=== PATIENT | female | born 1965 | race Caucasian/White ===

== ENCOUNTER 2018-06-05 14:36 | Emergency (ER) | payer SELFPAY ==
[~2018-06-05] VITALS: Ht 170.2 cm; Wt 59.0 kg
[2018-06-05 15:00] VITALS: BP 130/90
[2018-06-05] MEDS ORDERED: TETRACAINE 0.5% OPHTH SOLUTION 4ML BOTTLE. OU ONE (15:15)
[2018-06-05] MEDS ORDERED: FLUORESCEIN OPHTH TEST STRIP. OU ONE (15:15)
[2018-06-05] MEDS ORDERED: ONDA4TAB12 PO (15:47)
[2018-06-05] MEDS ORDERED: PRED50TA PO (15:47)
[2018-06-05] MEDS ORDERED: CEPH-264 PO (15:47)
--- NOTE | 2018-06-05 15:47 | PHYS DOC ---
Past Medical History Past Medical History: No Pertinent History (CINDY CASH AUDIO/VISUAL MANAGER) Past Surgical History: Tubal ligation (CINDY CASH APRN) Additional Information: pack/day Alcohol Use: Occasionally Drug Use: None (CINDY CASH APRN) Adult General Chief Complaint Chief Complaint: EYE PROBLEMS HPI HPI Patient is a 53 year old female who presents with 1 month of bilateral eye itching and then it went away and now it has come back. Patient now has bilateral thigh clear discharge, swelling, redness around both eyes with some vesicles. Patient states on this past Thursday she went to [facility] and they stated that she might have shingles around her eyes bilaterally. Ronald start her on acyclovir states it has not helped at all. Patient states it is burning and itching it feels like an open wound around her eyes. When looking in her eyes is very tender. Conjunctivae is pink. There is clear discharge from bilateral eyes. Patient denies using any different soaps or detergents or anything different on her face. 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 Patient states she's not been around anybody else that has had shingles or eye infections. She has had no previous illness. She denies any medical history. Afebrile and vital signs within normal limits. Visual acuities are left eye 20/ 20, right eye 20/20, both eyes 20/20. She denies headache, dizziness states at times she is light sensitive but denies having any acute visual changes. I have had Dr. Carrasco examine this patient also. Eye Exam w/ slit lamp: Visual Acuity: Left 20/20, Right 20/20, Both 20/20 Visual Olmedo: Intact in all four quadrants bilaterally Lac ducts/glands: Clear discharge, No swelling Lids w/ evertion: Normal, no foreign body Conj/Leroy: Lybrook conjunctiva, negative Fluorescein/Brandy's Retina exam: No obvious abnormality Patient to follow-up with Dr. Hicks toolroom machinist if she's not better by Thursday or she can return to the ED and we can recheck her. Patient will be put on Keflex and prednisone and she is to continue acyclovir. (CINDY CASH AUDIO/VISUAL MANAGER) Review of Systems Review of Systems Constitutional: Denies fever or chills [] Eyes: change in visual acuity, redness, or eye pain [] HENT: Denies nasal congestion or sore throat [] Respiratory: Denies cough or shortness of breath [] Cardiovascular: No additional information not addressed in HPI [] GI: Denies abdominal pain, nausea, vomiting, bloody stools or diarrhea [] : Denies dysuria or hematuria [] Musculoskeletal: Denies back pain or joint pain [] Integument: Denies rash or skin lesions [] Neurologic: Denies headache, focal weakness or sensory changes [] Endocrine: Denies polyuria or polydipsia [] All other systems were reviewed and found to be within normal limits, except as documented in this note. (CINDY CASH APRN) Current Medications Current Medications Current Medications Medications (Trade) Dose Ordered Sig/Kade Start Time Stop Time Status Last Admin Dose Admin Fluorescein Sodium (Ful-Marybel) 4 strip 1X ONCE 06/05/18 15:15 06/05/18 15:18 DC Tetracaine HCl (Tetracaine) 1 drop 1X ONCE 06/05/18 15:15 06/05/18 15:18 DC (ALEXIS CARRASCO MD) Allergies Allergies Allergies Coded Allergies Type Severity Reaction Last Updated Verified Penicillins Allergy Intermediate 06/05/18 No (ALEXIS CARRASCO MD) Physical Exam Physical Exam Constitutional: Well developed, well nourished, no acute distress, non-toxic appearance. [] HENT: Normocephalic, atraumatic, bilateral external ears normal, oropharynx moist, no oral exudates, nose normal. Bilateral eye clear discharge. [] Eyes: PERRLA, EOMI, conjunctiva normal, no discharge. [] Neck: Normal range of motion, no tenderness, supple, no stridor. [] Cardiovascular:Heart rate regular rhythm, no murmur [] Lungs & Thorax: Bilateral breath sounds clear to auscultation [] Abdomen: Bowel sounds normal, soft, no tenderness, no masses, no pulsatile masses. [] Skin: Warm, dry, erythema and swelling around eyes with vesicles, no rash. [] Back: No tenderness, no CVA tenderness. [] Extremities: No tenderness, no cyanosis, no clubbing, ROM intact, no edema. [] Neurologic: Alert and oriented X 3, normal motor function, normal sensory function, no focal deficits noted. [] Psychologic: Affect normal, judgement normal, mood normal. [] (CINDY CASH APRN) Current Patient Data Vital Signs Vital Signs Date Time Temp Pulse Resp B/P (MAP) Pulse Ox O2 Delivery O2 Flow Rate FiO2 06/05/18 15:00 98.2 95 19 130/90 (103) 97 Room Air 98.2 (ALEXIS CARRASCO MD) EKG EKG [] (CINDY CASH APRN) Radiology/Procedures Radiology/Procedures [] (CINDY CASH APRN) Course & Med Decision Making Course & Med Decision Making Patient is a 53 year old female who presents with 1 month of bilateral eye itching and then it went away and now it has come back. Patient now has bilateral thigh clear discharge, swelling, redness around both eyes with some vesicles. Patient states on this past Thursday she went to [facility] and they stated that she might have shingles around her eyes bilaterally. Ronald start her on acyclovir states it has not helped at all. Patient states it is burning and itching it feels like an open wound around her eyes. When looking in her eyes is very tender. Conjunctivae is pink. There is clear discharge from bilateral eyes. Patient denies using any different soaps or detergents or anything different on her face. 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 Patient states she's not been around anybody else that has had shingles or eye infections. She has had no previous illness. She denies any medical history. Afebrile and vital signs within normal limits. Visual acuities are left eye 20/ 20, right eye 20/20, both eyes 20/20. She denies headache, dizziness states at times she is light sensitive but denies having any acute visual changes. I have had Dr. Carrasco examine this patient also. Eye Exam w/ slit lamp: Visual Acuity: Left 20/20, Right 20/20, Both 20/20 Visual Olmedo: Intact in all four quadrants bilaterally Lac ducts/glands: Clear discharge, No swelling Lids w/ evertion: Normal, no foreign body Conj/Leroy: Lybrook conjunctiva, negative Fluorescein/Brandy's Retina exam: No obvious abnormality Patient to follow-up with Dr. Hicks toolroom machinist if she's not better by Thursday or she can return to the ED and we can recheck her. Patient will be put on Keflex and prednisone and she is to continue acyclovir. (CINDY CASH APRN) Course & Med Decision Making I saw this patient she has bilateral erythema periorbitally with some vesicular changes there is not classic for shingles due to the dermatomal distribution is not entirely accurate however that is possible she was advised to continue acyclovir. Corneal staining per the mid-level was normal. Visual acuity 20/20. Recommended trial of Keflex and prednisone stricter precautiosn come back here. Next week for re-eval if she is not better. (ALEXIS CARRASCO MD) Dragon Disclaimer Dragon Disclaimer This electronic medical record was generated, in whole or in part, using a voice recognition dictation system. (CINDY CASH APRN) Departure Departure Impression: Primary Impression: Blepharitis of both eyes Additional Impression: Eye problem Disposition: HOME, SELF-CARE Condition: STABLE Referrals: NON,STAFF (PCP) Danuta HICKS MD Patient Instructions: Blepharitis, Periorbital Cellulitis Additional Instructions: If not getting better by Thursday follow-up with eye doctor as referred and or anything come back to the ED and we can recheck her eyes. Take medications as prescribed. Scripts Ondansetron (ONDANSETRON ODT) 4 Mg Tab.rapdis 1 TAB PO PRN Q6-8HRS, #20 TAB Prov: CINDY CASH APRN 06/05/18 Cephalexin (KEFLEX) 500 Mg Capsule 500 MG PO QID for 10 Days, #40 CAP Prov: CINDY CASH APRN 06/05/18 Prednisone (PREDNISONE) 50 Mg Tablet 1 TAB PO DAILY for 5 Days, #5 TAB Prov: CINDY CASH APRN 06/05/18 Problem Qualifiers Primary Impression: Blepharitis of both eyes Blepharitis type: unspecified type Eyelid: both upper and lower Qualified Codes: H01.00A - Unspecified blepharitis right eye, upper and lower eyelids; H01.00B - Unspecified blepharitis left eye, upper and lower eyelids CINDY CASH APRN Jun 05, 2018 15:47 ALEXIS CARRASCO MD Jun 05, 2018 17:02
== END 2018-06-05 15:49 | disposition home or self-care (01) ==
LOC: ER 14:36
DX: H01.00A Unspecified blepharitis right eye, upper and lower eyelids (principal); H01.00B Unspecified blepharitis left eye, upper and lower eyelids; F17.200 Nicotine dependence, unspecified, uncomplicated; Z98.51 Tubal ligation status; Z88.0 Allergy status to penicillin
CPT/HCPCS: 99283

== ENCOUNTER 2018-12-13 13:02 | Emergency (ER) | payer SELFPAY ==
[~2018-12-13] VITALS: Ht 170.2 cm; Wt 69.4 kg
[~2018-12-13 13:02] MED LIST: CEPH-264 PO; ONDA4TAB12 PO; PRED50TA PO
[2018-12-13 13:16] VITALS: BP 126/84
--- NOTE | 2018-12-13 13:32 | PHYS DOC ---
Past Medical History Past Medical History: No Pertinent History Past Surgical History: Tubal ligation Alcohol Use: Occasionally Drug Use: None Adult General Chief Complaint Chief Complaint: OTHER COMPLAINTS [facility] HPI Patient is a 53 year old [female] who presents with [bilateral wrist numbness and discomfort for the past 2 years. 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 Reports she rests, her pain improves, but if she continues to use them the discomfort worsens. States she has tried wrapping them with Raffi wrap Kaitlyn, reports she has tried wrist splints to help briefly but continues to have discomfort. Reports she has tried gabapentin at one time, but has not had any quite a while reports that did seem to help her some. ] Review of Systems Review of Systems Constitutional: Denies fever or chills [] Cardiovascular: No additional information not addressed in HPI [] GI: Denies abdominal pain, nausea, vomiting, bloody stools or diarrhea [] : Denies dysuria or hematuria [] Musculoskeletal: Denies back pain or joint pain, complains of bilateral pain to wrists [] Integument: Denies rash or skin lesions [] Neurologic: Denies headache, focal weakness or sensory changes states numbness in hands when she uses them frequently [] Endocrine: Denies polyuria or polydipsia [] All other systems were reviewed and found to be within normal limits, except as documented in this note. Allergies Allergies Allergies Coded Allergies Type Severity Reaction Last Updated Verified Penicillins Allergy Intermediate 06/05/18 No Physical Exam Physical Exam Constitutional: Well developed, well nourished, no acute distress, non-toxic appearance. [] Cardiovascular:Heart rate regular rhythm, no murmur [] Lungs & Thorax: Bilateral breath sounds clear to auscultation [] Abdomen: Bowel sounds normal, soft, no tenderness, no masses, no pulsatile masses. [] Skin: Warm, dry, no erythema, no rash. [] Extremities: No tenderness, no cyanosis, no clubbing, ROM intact, no edema. Phalens test +. Patient reporting tenderness on palpation of volar wrists. [] Neurologic: Alert and oriented X 3, normal motor function, normal sensory function, no focal deficits noted. [] Psychologic: Affect normal, judgement normal, mood normal. [] EKG EKG [] Radiology/Procedures Radiology/Procedures [] Course & Med Decision Making Course & Med Decision Making Pertinent Labs and Imaging studies reviewed. (See chart for details) []Discussed with the patient signs consistent with carpal tunnel injury, due to repetitive work. Discussed no quick fix treatments today, discussed continue splinting, and use of anti-inflammatories, and referral for surgery as needed. We'll provide referral for Ortho for patient to follow up. Dragon Disclaimer Dragon Disclaimer This electronic medical record was generated, in whole or in part, using a voice recognition dictation system. Departure Departure Impression: Primary Impression: Carpal tunnel syndrome, bilateral Disposition: 01 HOME, SELF-CARE Condition: GOOD Referrals: NABILA MCKAY MD (PCP) BHAVIK MICHAUD MD Patient Instructions: Carpal Tunnel Syndrome, [id number] Additional Instructions: As we discussed, continue to use the splints anytime who are going to use your wrists. Continue to take Tylenol or ibuprofen for the anti-inflammatory effects discussed with the discomfort. Contact orthopedic office to try to set up an appointment for a evaluation for your wrists to see if they would recommend surgery or if they have other recommendations. CASSIE BEAL APRN Dec 13, 2018 13:32
== END 2018-12-13 14:05 | disposition home or self-care (01) ==
LOC: ER 13:02
DX: G56.03 Carpal tunnel syndrome, bilateral upper limbs (principal); Z98.51 Tubal ligation status; Z88.0 Allergy status to penicillin
CPT/HCPCS: 29125; 99283

== ENCOUNTER 2020-09-19 01:20 | Emergency (ER) | payer SELFPAY ==
[~2020-09-19] VITALS: Ht 170.2 cm; Wt 63.6 kg
[2020-09-19] MEDS ORDERED: methylPREDNISolone SOD SUCC PF 125 MG/2 ML VIAL. IM ONE (01:45)
[2020-09-19] MEDS ORDERED: KETOROLAC 60 MG/2 ML VIAL. IM ONE (01:45)
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
[2020-09-19] MEDS ORDERED: NAPR-682 PO (02:29)
[2020-09-19] MEDS ORDERED: PRED20TA PO (02:29)
[2020-09-19] MEDS ORDERED: TRAM50TA PO (02:29)
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
[2020-09-19 02:55] VITALS: BP 114/77
== END 2020-09-19 03:03 | disposition home or self-care (01) ==
LOC: ER 01:20
DX: M54.42 Lumbago with sciatica, left side (principal); F17.200 Nicotine dependence, unspecified, uncomplicated; Z98.51 Tubal ligation status
CPT/HCPCS: 72100; 96372; 99284; J1885; J2930

== ENCOUNTER 2020-09-22 16:02 | Emergency (ER) | payer SELFPAY ==
[~2020-09-22 16:02] MED LIST changes: +NAPR-682 PO; +PRED20TA PO; +TRAM50TA PO
== END 2020-09-22 17:30 | disposition left against medical advice (07) ==
LOC: ER 16:02
DX: R06.02 Shortness of breath (principal); Z53.21 Procedure and treatment not carried out due to patient leaving prior to being seen by health care provider